=== PATIENT | male | born 1965 | race Caucasian/White ===

== ENCOUNTER 2016-07-03 11:03 | Emergency (ER) | payer OTHER ==
--- NOTE | 2016-07-03 11:29 | EDPHY ---
H & P Time Seen by Provider: 07/03/16 11:14 HPI/ROS: CHIEF COMPLAINT: visual change HISTORY OF PRESENT ILLNESS: Patient is a 50-year-old healthy male who presents emergency department after having visual changes about 45 minutes prior to arrival. The patient works as a MEDICAL INSURANCE CLERK and was using a spread sheet on the computer. He noticed a central spot that he could not see through on his computer screen. There was some surrounding flashing. "I don't know how to describe it. The spot slowly began to grow. He called his competitive intelligence analyst who told to come to the office. This made him nervous we took an aspirin and came to the emergency department. Patient's symptoms have now resolved. He states that the visual change was in both eyes and remained presently would cover each of his eyes. He denies headache or neck pain. No recent trauma or fall. No chest pain or shortness of breath. No recent new medications. REVIEW OF SYSTEMS: My complete review of systems is negative except as mentioned in the HPI. Past Medical/Surgical History: Negative Past surgical history: Back surgery Social history: The patient does not smoke or use drugs. Smoking Status: Never smoked Physical Exam: Vitals noted GENERAL: Well-appearing, in no acute distress, alert. HEENT: Eyes normal to inspection, normal pharynx, no signs of dehydration. NECK: No thyromegaly, no lymphadenopathy, supple. RESPIRATORY: Clear to auscultation bilaterally, no rales, rhonchi or wheezing. CVS: Regular rate and rhythm, no rubs, murmurs, or gallops. ABDOMEN: Soft, nontender, nondistended, no organomegaly. BACK: Normal to inspection, no CVA tenderness. SKIN: Normal color, no rash, warm, dry. No pallor. EXTREMITIES: No pedal edema, no calf tenderness, no Homans sign or cords, no joint swelling. NEURO/PSYCH: Higher functions: Alert and Oriented x3. Normal speech and cognition. Normal mood and affect. Cranial nerves: Normal as tested. Cerebellar: Normal as tested. Good finger to nose, good [id number], normal gait. Peripheral exam: Normal motor exam. Normal sensation. Normal reflexes. Constitutional: Initial Vital Signs Temperature (C) 36.6 C 07/03/16 11:05 Heart Rate 74 07/03/16 11:05 Respiratory Rate 16 07/03/16 11:05 Blood Pressure 143/97 H 07/03/16 11:05 O2 Sat (%) 97 07/03/16 11:05 O2 Delivery Mode Room Air Allergies/Adverse Reactions: No Known Allergies Allergy (Unverified 07/03/16 11:11) Home Medications: Medication Instructions Recorded ASPIRIN 07/03/16 Medical Decision Making - Diagnostics EKG Interpretation: Sinus rhythm at 62. Left axis deviation. Normal intervals. No ST or T-wave abnormalities. ED Course/Re-evaluation: In the emergency department I discussed the plan with the patient and answered all his questions. An IV was placed. Laboratory studies and EKG were obtained. Due to the patient's visual change symptoms an MRI was ordered. 1210: I reviewed the patient's laboratory studies. His CBC and chemistry essentially unremarkable. His white count was minimally elevated at 11. Patient 's troponin is still pending. I discussed the results with the patient. He is doing well with no complaints. Nonfocal neuro exam. MRI: Please refer the dictated report by Dr. Murali Shaw. No acute CVA or other acute abnormality noted. 1215: I discussed the results with the patient. I answered all his questions. Patient had a nonfocal normal neuro exam. Neurology was paged. Trop neg. 1225: Discussed the case with Dr. Mikey Sharp. I reviewed the patient's presentation and MRI findings. He agrees with plan to have the patient discharged home. Patient will take an aspirin daily until he follows up with Dr. Sharp. I explained this to the patient given warnings prior to leaving. He will return with worsening symptoms. Differential Diagnosis: My differential includes but is not limited to ischemic CVA, hemorrhagic CVA, dissection, migraine, aneurysm, ACS, acute VT, electrolyte abnormality, sugar abnormality, retinal detachment - Data Points Laboratory Results: Laboratory Results 07/03/16 11:30 07/03/16 11:30 07/03/16 11:30 WBC 10.17 H 10^3/uL (3.80-9.50) RBC 5.23 10^6/uL (4.40-6.38) Hgb 16.1 g/dL (13.7-17.5) Hct 46.4 % (40.0-51.0) MCV 88.7 fL (81.5-99.8) MCH 30.8 pg (27.9-34.1) MCHC 34.7 g/dL (32.4-36.7) RDW 12.3 % (11.5-15.2) Plt Count 281 10^3/uL (150-400) MPV 9.1 fL (8.7-11.7) Neut % (Auto) 64.2 % (39.3-74.2) Lymph % (Auto) 26.6 % (15.0-45.0) [place] % (Auto) 7.9 % (4.5-13.0) Eos % (Auto) 0.5 L % (0.6-7.6) Baso % (Auto) 0.4 % (0.3-1.7) Nucleat RBC Rel Count 0.0 % (0.0-0.2) Absolute Neuts (auto) 6.53 H 10^3/uL (1.70-6.50) Absolute Lymphs (auto) 2.71 10^3/uL (1.00-3.00) Absolute Monos (auto) 0.80 10^3/uL (0.30-0.80) Absolute Eos (auto) 0.05 10^3/uL (0.03-0.40) Absolute Basos (auto) 0.04 10^3/uL (0.02-0.10) Absolute Nucleated RBC 0.00 10^3/uL (0-0.01) Immature Gran % 0.4 % (0.0-1.1) Immature Gran # 0.04 10^3/uL (0.00-0.10) PT 12.5 SEC (12.0-15.0) INR 0.94 (0.83-1.16) APTT 28.1 SEC (23.0-38.0) Sodium 142 mEq/L (134-144) Potassium 4.0 mEq/L (3.5-5.2) Chloride 104 mEq/L (97-110) Carbon Dioxide 25 mEq/l (22-31) Anion Gap 13 mEq/L (8-16) BUN 14 mg/dL (7-23) Creatinine 0.9 mg/dL (0.7-1.3) Estimated GFR > 60 Glucose 95 mg/dL (70-100) Calcium 9.6 mg/dL (8.5-10.4) Troponin I < 0.012 ng/mL (0-0.034) Departure - Departure Disposition: Home, Routine, Self-Care Clinical Impression: Visual changes Condition: Good Instructions: Transient Ischemic Attack (ED) Additional Instructions: Return with increasing symptoms, headache or any other concerns. Referrals: Mikey Sharp MD [Medical Doctor] - 3-4 days, if not improved
[2016-07-03 11:41] LABS: % IMMATURE GRANULYOCYTES 0.4 % (0.0-1.1); ABSOLUTE IMMATURE GRANULOCYTES 0.04 10^3/uL (0.00-0.10); ADD DIFF? NO; ADD MORPH? NO; ADD SCAN? NO; ATYPICAL LYMPHOCYTE FLAG 0 (0-99); FRAGMENT RBC FLAG 0 (0-99); HEMATOCRIT 46.4 % (40.0-51.0); HEMOGLOBIN 16.1 g/dL (13.7-17.5); LEFT SHIFT FLG 0 (0-99); LIPEMIA HEMOLYSIS FLAG 90 (0-99); MEAN CELL HEMOGLOBIN 30.8 pg (27.9-34.1); MEAN CELL HEMOGLOBIN CONCENTR. 34.7 g/dL (32.4-36.7); MEAN CELL VOLUME 88.7 fL (81.5-99.8); MEAN PLATELET VOLUME 9.1 fL (8.7-11.7); PLATELET CLUMPS FLAG 0 (0-99); PLATELET COUNT 281 10^3/uL (150-400); RED BLOOD CELL COUNT 5.23 10^6/uL (4.40-6.38); RED CELL DISTRIBUTION WIDTH 12.3 % (11.5-15.2)
--- NOTE | 2016-07-03 11:41 | CPEKG ---
Heart Rate: 62 RR Interval: 968 P-R Interval: 188 QRSD Interval: 98 QT Interval: 412 QTC Interval: 419 P [place]: 43 QRS [place]: -35 T Wave [place]: 19 EKG Severity - OTHERWISE NORMAL ECG - EKG Impression: SINUS RHYTHM EKG Impression: LEFT AXIS DEVIATION Electronically Signed By: Cassandra Schaffer 03-Jul-2016 16:33:27
[2016-07-03 11:50] LABS: INR 0.94 (0.83-1.16); PROTIME(PATIENT) 12.5 SEC (12.0-15.0)
[2016-07-03 11:51] LABS: APTT 28.1 SEC (23.0-38.0)
[2016-07-03 11:59] LABS: ANION GAP 13 mEq/L (8-16); CALCIUM 9.6 mg/dL (8.5-10.4); CARBON DIOXIDE 25 mEq/l (22-31); CHLORIDE 104 mEq/L (97-110); CREATININE 0.9 mg/dL (0.7-1.3); GLOMERULAR FILTRATION RATE > 60; GLUCOSE 95 mg/dL (70-100); SODIUM 142 mEq/L (134-144)
[2016-07-03 12:09] LABS: TROPONIN I < 0.012 ng/mL (0-0.034)
--- NOTE | 2016-07-03 12:25 | MR ---
MRI brain without contrast History: Vision changes bilaterally. Technique: MRI was performed of the brain using a 1.5 Mirtha MRI system. Sagittal, axial, and coronal imaging was obtained with standard imaging sequences. Findings: There is a small white matter lesion in the deep hemispheric white matter of the right fro ntal lobe and junction of the left parietal occipital region. These are visualized as small foci of i ncreased signal intensity in FLAIR and T2-weighted imaging. No evidence for diffusion restriction or mass effect. No other findings for intracranial mass, hemorrhage, or infarct. There appears to be a d evelopmental venous anomaly in the left frontal lobe. Ventricles, sulci, and cisterns are within norm al limits for the patient's age. No evidence for an extra-axial fluid collection. Pituitary and pinea l regions are unremarkable. The craniocervical junction is unremarkable. No evidence for an air-fluid level in the paranasal sinuses. Minimal mucous membrane thickening is seen in the maxillary sinuses. Impression: 1. Two small white matter lesions, which are nonspecific and can be seen with gliosis from migraine o r trauma or, less likely, small vessel ischemic change. No evidence for acute infarct. 2. Minimal chronic sinus related change. Results discussed with Dr. Cassandra Schaffer.
[2016-07-03 12:42] VITALS: BP 122/79; PULSE 64; RESP 18; TEMP 98.4; O2SAT 96
== END 2016-07-03 12:42 | disposition home or self-care (01) ==
DX: H53.8 Other visual disturbances (principal)